=== PATIENT | male | born 1955 | race Caucasian/White ===

== ENCOUNTER 2017-04-24 13:48 | Emergency (ER) | payer MEDICAID ==
[~2017-04-24] VITALS: Ht 182.9 cm; Wt 99.8 kg
[2017-04-24 13:52] VITALS: BP 109/68
== END 2017-04-24 15:15 | disposition home or self-care (01) ==
LOC: ED 15:00
DX: K08.89 Other specified disorders of teeth and supporting structures (principal)
CPT/HCPCS: 99283